=== PATIENT | female | born 1970 | race Caucasian/White ===

== ENCOUNTER 2016-11-22 22:57 | Emergency (ER) | payer OTHER ==
[~2016-11-22] VITALS: Ht 167.6 cm; Wt 108.0 kg
[2016-11-22 23:00] VITALS: BP 181/92
[2016-11-22] MEDS ORDERED: AZIT250T6 PO (23:39)
[2016-11-22] MEDS ORDERED: NAPR275T59 PO (23:39)
--- NOTE | 2016-11-22 23:39 | PHYS DOC ---
Past History Additional Past Medical Histor: chronic dental issues Past Medical History Lipoma upper neck and shoulder area on left Smoking: Cigarettes, Greater than 1 pack/day Alcohol Use: None Drug Use: None Adult General Chief Complaint Chief Complaint: EARACHE/EAR PAIN [facility] HPI This is a pleasant 46-year-old female history of dental issues presents with left ear pain that began earlier today with drainage. She describes anus achy and throbbing radiating from the base of the ear to the Localized swelling. At the base of the neck underneath the ear at his chronic for patient when she has ear infections. She denies any fever, hearing loss, she has had a recent URI with runny nose and nonproductive cough. She denies any trauma to the ear or tinnitus. This pain is a dull ache moderate in nature at this time Review of Systems Review of Systems Constitutional: Denies fever or chills [] Eyes: Denies change in visual acuity, redness, or eye pain [] HENT: She does have nasal congestion or ear pain without sore throat Respiratory: Some slight cough nonproductive in nature Cardiovascular: No additional information not addressed in HPI [] GI: Denies abdominal pain, nausea, vomiting, bloody stools or diarrhea [] : Denies dysuria or hematuria [] Musculoskeletal: Denies back pain or joint pain [] Integument: Denies rash or skin lesions [] Neurologic: Denies headache, focal weakness or sensory changes [] Endocrine: Denies polyuria or polydipsia [] Physical Exam Physical Exam Constitutional: Well developed, well nourished, no acute distress, non-toxic appearance. [] HENT: Normocephalic, atraumatic, bilateral external ears normal, dry mucous membranes with poor dentition considerable enamel erosion with only 4 teeth left in the lower jaw. It is no soft tissue swelling or erythema consistent with abscess in her mouth. Buccal mucosa is dry(left TM is bulging and red Eyes: PERRLA, EOMI, conjunctiva normal, no discharge. [] Neck: Normal range of motion, supple, no stridor. [] Recent does have significant anterior cervical lymphadenopathy mild tenderness to palpation. Cardiovascular:Heart rate regular rhythm, no murmur [] Lungs & Thorax: Bilateral breath sounds clear to auscultation [] Skin: Warm, dry, no erythema, no rash. [] Neurologic: Alert and oriented X 3, normal motor function, EKG EKG [] Radiology/Procedures Radiology/Procedures [] Course & Med Decision Making Course & Med Decision Making Pertinent Labs and Imaging studies reviewed. (See chart for details) the patient 's vital signs, nursing notes and history of physical patient with likely left otitis media with reactive lymphadenopathy. No evidence of herpes ophthalmicus or other facial cellulitis. she does have significant dental caries as well and referral her to a dentist. Impression: Left otitis media with reactive lymphadenopathy PCP follow-up 12-24 hours antibiotic course [] Dragon Disclaimer Dragon Disclaimer This chart was dictated in whole or in part using Voice Recognition software in a busy, high-work load, and often noisy Emergency Department environment. It may contain unintended and wholly unrecognized errors or omissions. Departure Departure: Impression: Primary Impression: Otitis media Disposition: 01 HOME, SELF-CARE Condition: IMPROVED Patient Instructions: Dental Caries, Otitis Media, Adult Additional Instructions: These follow-up with her primary care doctor for referral to a dentist. Dental issues seen ENT. In order to treat your Chronic ear infections. Scripts Azithromycin (AZITHROMYCIN TABLET) 250 Mg Tablet 250 MG PO DAILY for ANTI-BIOTIC for 5 Days, #5 TAB 0 Refills Please take 2 times the first day Please take one tablet day 2 through 5. Prov: ISRAEL LEON MD 11/22/16 Naproxen Sodium (NAPROXEN SODIUM) 275 Mg Tablet 275 MG PO BID for 7 Days, #14 TAB Prov: ISRAEL LEON MD 11/22/16 ISRAEL LEON MD Nov 22, 2016 23:39
[2016-11-22] MEDS ORDERED: levoFLOXacin 500 MG TABLET ONE (23:45)
[2016-11-23] MEDS ORDERED: NAPROXEN 500 MG TABLET PO ONE
[2016-11-23] MEDS ORDERED: AZITHROMYCIN 250 MG TABLET. PO ONE
== END 2016-11-22 23:55 | disposition home or self-care (01) ==
LOC: ER 22:57
DX: H66.92 Otitis media, unspecified, left ear (principal); R59.1 Generalized enlarged lymph nodes; F17.210 Nicotine dependence, cigarettes, uncomplicated
CPT/HCPCS: 99283; J0456

== ENCOUNTER 2016-11-24 21:20 | Emergency (ER) | payer OTHER ==
[~2016-11-24] VITALS: Ht 167.6 cm; Wt 108.0 kg
[~2016-11-24 21:20] MED LIST: AZIT250T6 PO; NAPR275T59 PO
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
[2016-11-24 23:28] VITALS: BP 164/85
--- NOTE | 2016-11-25 08:04 | RAD ---
Indication injury, follow-up. AP oblique and lateral views of the right knee were obtained. No bony abnormality is seen
== END 2016-11-24 23:28 | disposition home or self-care (01) ==
LOC: ER 21:20
DX: M25.561 Pain in right knee (principal); I11.0 Hypertensive heart disease with heart failure; I50.9 Heart failure, unspecified; E11.9 Type 2 diabetes mellitus without complications; M79.7 Fibromyalgia; F17.210 Nicotine dependence, cigarettes, uncomplicated; Z88.0 Allergy status to penicillin; Z88.1 Allergy status to other antibiotic agents; W18.09XA Striking against other object with subsequent fall, initial encounter; Y93.89 Activity, other specified; Y99.8 Other external cause status; Y92.89 Other specified places as the place of occurrence of the external cause
CPT/HCPCS: 73562; 99284

== ENCOUNTER 2017-01-06 20:13 | Emergency (ER) | payer OTHER ==
[~2017-01-06] VITALS: Ht 167.6 cm; Wt 108.0 kg
[2017-01-06 20:17] VITALS: BP 166/76
[2017-01-06] MEDS ORDERED: DOXY100T PO (22:06)
--- NOTE | 2017-01-06 22:06 | PHYS DOC ---
Past History Past Medical History: CHF, Diabetes, Fibromyalgia, Hypertension, MRSA Additional Past Medical Histor: chronic dental issues Past Surgical History: Cholecystectomy Smoking: Cigarettes, Greater than 1 pack/day Alcohol Use: None Drug Use: None Adult General Chief Complaint Chief Complaint: ABSCESS HPI HPI Patient is a 38-year-old female who presents to the ER today complaining of small pustule to her right breast. Patient reports that she had similar episode approximately one year ago that was not treated rapidly and developed into an abscess that she developed sepsis. Patient presents here today requesting management of this abscess before it gets worse. Patient has any fevers shakes chills nausea vomiting diarrhea chest pain shortness of breath cough cold or runny nose. Patient reports that she is allergic to Bactrim penicillin. Patient reports that she can take doxycycline. Patient reports that she has GI discomfort with clindamycin. Patient's physical exam is significant for a 1 x 1 cm erythematous area to her right breast with a small head in the center. There is no fluctuance or induration this time that would be amenable to aspiration or incision and drainage. Constitutional: Denies fever or chills [] Eyes: Denies change in visual acuity, redness, or eye pain [] HENT: Denies nasal congestion or sore throat [] All other review systems are negative except as documented in the history of present illness portion. Constitutional: Well developed, well nourished, no acute distress, non-toxic appearance. [] HENT: Normocephalic, atraumatic, bilateral external ears normal, oropharynx moist, no oral exudates, nose normal. [] Eyes: PERRLA, EOMI, conjunctiva normal, no discharge. [] Neck: Normal range of motion, no tenderness, supple, no stridor. [] Cardiovascular:Heart rate regular rhythm, Lungs & Thorax: Bilateral breath sounds clear to auscultation [] Abdomen: Bowel sounds normal, soft, no tenderness, no masses, no pulsatile masses. [] Skin: Warm, dry, no erythema, no rash. [] Back: No tenderness, no CVA tenderness. [] Extremities: No tenderness, no cyanosis, no clubbing, ROM intact, no edema. [] Neurologic: Alert and oriented X 3, normal motor function, normal sensory function, no focal deficits noted. [] Psychologic: Affect normal, judgement normal, mood normal. [] Assessment and plan this is a 46-year-old female who presents here today with a small microabscess/cellulitis to her right breast that will be started on doxycycline for. Patient has been instructed to get up and check in 2 days. Primary care physician and to return the ER sooner if she starts developing any fevers or if the infection starts to worsen. Current Medications Current Medications Current Medications Medications (Trade) Dose Ordered Sig/Leandro Start Time Stop Time Status Last Admin Dose Admin Doxycycline Hyclate (Vibra-Tab) 100 mg 1X ONCE 01/06/17 22:15 01/06/17 22:16 Allergies Allergies Allergies Coded Allergies Type Severity Reaction Last Updated Verified Penicillins Allergy Intermediate 11/22/16 Yes clindamycin Allergy Intermediate 11/22/16 Yes Sulfa (Sulfonamide Antibiotics) Allergy Unknown 11/24/16 Yes Current Patient Data Vital Signs Vital Signs Date Time Temp Pulse Resp B/P (MAP) Pulse Ox O2 Delivery O2 Flow Rate FiO2 01/06/17 20:17 99.0 100 20 98 Room Air EKG EKG [] Radiology/Procedures Radiology/Procedures [] Course & Med Decision Making Course & Med Decision Making Pertinent Labs and Imaging studies reviewed. (See chart for details) [] Dragon Disclaimer Dragon Disclaimer This chart was dictated in whole or in part using Voice Recognition software in a busy, high-work load, and often noisy Emergency Department environment. It may contain unintended and wholly unrecognized errors or omissions. Departure Departure: Impression: Primary Impression: Skin abscess Additional Impression: Cellulitis of breast Disposition: 01 HOME, SELF-CARE Condition: IMPROVED Referrals: YAJAIRA YOUNG MD (PCP) Patient Instructions: Cellulitis, [id number] Scripts Doxycycline Hyclate (DOXYCYCLINE HYCLATE) 100 Mg Tablet 1 TAB PO BID, #20 TAB Prov: LUCIAN SUAREZ MD 01/06/17 Problem Qualifiers LUCIAN SUAREZ MD Jan 06, 2017 22:06
[2017-01-06] MEDS ORDERED: DOXYCYCLINE HYCLATE 100 MG TABLET PO ONE (22:15)
== END 2017-01-06 22:13 | disposition home or self-care (01) ==
LOC: ER 20:13
DX: L02.91 Cutaneous abscess, unspecified (principal); N61.0 Mastitis without abscess; I11.0 Hypertensive heart disease with heart failure; I50.9 Heart failure, unspecified; E11.9 Type 2 diabetes mellitus without complications; M79.7 Fibromyalgia; F17.210 Nicotine dependence, cigarettes, uncomplicated; Z86.14 Personal history of Methicillin resistant Staphylococcus aureus infection; Z88.2 Allergy status to sulfonamides; Z88.0 Allergy status to penicillin; Z88.1 Allergy status to other antibiotic agents
CPT/HCPCS: 99283

== ENCOUNTER 2017-01-07 19:25 | Emergency (ER) | payer OTHER ==
[~2017-01-07 19:25] MED LIST changes: +DOXY100T PO
[2017-01-07 19:34] VITALS: BP 159/90
--- NOTE | 2017-01-07 19:48 | PHYS DOC ---
Past History Past Medical History: Arthritis, CHF, Diabetes, Fibromyalgia, Hypertension, MRSA Additional Past Medical Histor: chronic dental issues Past Surgical History: Cholecystectomy Additional Past Surgical Histo: abscess I&D Smoking: Cigarettes, Greater than 1 pack/day Alcohol Use: None Drug Use: None Adult General Chief Complaint Chief Complaint: ABSCESS HPI HPI Patient is a 46 year old female who presents for a recheck on her breast abscess. She was seen here yesterday at approximately 2200 p.m. She has had a long-standing history of MRSA infections. She is concerned because she felt this area had worsened since last night. She has been taking her antibiotics as directed. She uses Hibiclens on the area and places Bactroban ointment. No fever. No spontaneous drainage of fluid collection. Review of Systems Review of Systems Constitutional: Denies fever or chills Integument: Denies rash. Right breast with increase in redness Allergies Allergies Allergies Coded Allergies Type Severity Reaction Last Updated Verified Penicillins Allergy Intermediate 11/22/16 Yes clindamycin Allergy Intermediate 11/22/16 Yes Sulfa (Sulfonamide Antibiotics) Allergy Unknown 11/24/16 Yes Physical Exam Physical Exam Constitutional: Well developed, well nourished, no acute distress, non-toxic appearance. Skin: Warm, dry, no erythema, no rash. Right breast: quarter sized area medial aspect of erythema. Central area in center of induration BUT NO FLUCTUANT MASS. No lymphangitis. Back: No tenderness, no CVA tenderness. Current Patient Data Vital Signs Vital Signs Date Time Temp Pulse Resp B/P (MAP) Pulse Ox O2 Delivery O2 Flow Rate FiO2 01/07/17 19:34 98.4 97 18 95 Room Air Course & Med Decision Making Course & Med Decision Making Chart from yesterday. The area has not formed an abscess yet. There is this area of surrounding erythema that has increased in size but still signs of quarter. There is no lymphangitic spread. There is no fluctuance and I explained to her how I cannot do an incision and drainage and cellulitis. Patient is very concerned that this may worsen and indeed it may but at this point we are too early in the progression of the disease to determine if it will require I&D or hospitalization. AT THIS TIME SHE DOES NOT MEET HOSPITALIZATION CRITERIA. She is to continue on her Bactroban ointment, Hibiclens to the area, warm packs and the doxycycline. She unfortunately cannot take clindamycin due to severe GI upset and she cannot take Bactrim due to an allergy-or I would add one of these as a secondary med. There is anything else we can offer her today except to continue with her care plan to have her closely followed. She is to contact her personal physician tomorrow and have it rechecked. Dragon Disclaimer Dragon Disclaimer This chart was dictated in whole or in part using Voice Recognition software in a busy, high-work load, and often noisy Emergency Department environment. It may contain unintended and wholly unrecognized errors or omissions. Departure Departure: Impression: Primary Impression: Cellulitis of right breast Disposition: HOME, SELF-CARE Condition: GOOD Referrals: YAJAIRA YOUNG MD (PCP) Patient Instructions: Cellulitis Additional Instructions: SEE DR YOUNG TOMORROW. THERE IS NOT A FORMATION OF A ABSCESS YET TO DRAIN. WE CANNOT PREDICT IF YOU WILL DEVELOP ONE OR NOT. CONTINUE WITH THE BACTROBAN OINTMENT; HIBICLENS SCRUBS; WARM PACKS AND THE ANTIBIOTIC. ALCIDES PLASCENCIA MD Jan 07, 2017 19:48
== END 2017-01-07 20:05 | disposition home or self-care (01) ==
LOC: ER 19:25
DX: N61.0 Mastitis without abscess (principal); M19.90 Unspecified osteoarthritis, unspecified site; I11.0 Hypertensive heart disease with heart failure; I50.9 Heart failure, unspecified; E11.9 Type 2 diabetes mellitus without complications; M79.7 Fibromyalgia; F17.210 Nicotine dependence, cigarettes, uncomplicated; Z86.14 Personal history of Methicillin resistant Staphylococcus aureus infection; Z88.1 Allergy status to other antibiotic agents; Z88.2 Allergy status to sulfonamides; Z88.0 Allergy status to penicillin
CPT/HCPCS: 99281

== ENCOUNTER 2017-01-27 21:05 | Emergency (ER) | payer OTHER ==
[~2017-01-27] VITALS: Ht 167.6 cm; Wt 105.2 kg
[2017-01-27 21:10] VITALS: BP 156/88
[2017-01-27] MEDS ORDERED: DOXY100C14 PO (21:40)
[2017-01-27] MEDS ORDERED: NYST15CR2 TP (21:40)
--- NOTE | 2017-01-27 21:40 | PHYS DOC ---
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 She's been seen in our emergency department several times for local I&D. She's been seen by general surgeon as well for treatment of this wound. She noted in the same location that she normally has this wound yesterday increasing redness and swelling along the site. Patient denies any fevers, chills or other symptoms. She began using warm compresses and noted a slight rash underneath her left breast as well. It is described as beefy and red with satellite lesions. She denies any other systemic complaints of fevers or chills but wants to make sure she gets on antibiotics early and she will follow-up with her general surgeon on Sunday. She denies any recent travel outside the country denies any trauma. Review of Systems Review of Systems Constitutional: Denies fever or chills [] Eyes: Denies change in visual acuity, redness, or eye pain [] HENT: Denies nasal congestion or sore throat [] Respiratory: Denies cough or shortness of breath [] Cardiovascular: No additional information not addressed in HPI [] GI: Denies abdominal pain, nausea, vomiting, bloody stools or diarrhea [] : Denies dysuria or hematuria [] Musculoskeletal: Denies back pain or joint pain [] Integument: She has had local area of swelling and skin lesion on her right breast has been there for last month. Also describes a beefy red-like rash underneath the right breast after applying warm compresses. Neurologic: Denies headache, focal weakness or sensory changes [] Endocrine: Denies polyuria or polydipsia [] Allergies Allergies Allergies Coded Allergies Type Severity Reaction Last Updated Verified Penicillins Allergy Intermediate 11/22/16 Yes clindamycin Allergy Intermediate 11/22/16 Yes Sulfa (Sulfonamide Antibiotics) Allergy Unknown 11/24/16 Yes Physical Exam Physical Exam The vital signs recorded on the chart patient to be hypertensive otherwise normal looking vital signs. Constitutional: Well developed, well nourished, no acute distress, non-toxic appearance. [] Cardiovascular:Heart rate regular rhythm, patient has a 2/6 systolic ejection murmur. Lungs & Thorax: Bilateral breath sounds clear to auscultation [] Skin: Warm, dry, she has an area on her right breast the medial aspect near the sternum measuring 4 cm x 3 cm internal erythema. There is a small area local eschar that is well-healed there is a small area of induration and soft tissue swelling with no obvious signs of fluctuance. Underneath her right breast also has a beefy red rash with some satellite lesions there is no vesicles, no purpura no petechiae. [] Neurologic: Alert and oriented X 3, normal motor function, normal sensory function, no focal deficits noted. [] Psychologic: Affect normal, judgement normal, mood normal. [] EKG EKG [] Radiology/Procedures Radiology/Procedures [] Course & Med Decision Making Course & Med Decision Making Pertinent Labs and Imaging studies reviewed. (See chart for details) she presents with what I believe is an early cellulitis of an old injury site. She also has evidence of candidiasis likely secondary to moisture and warmth underneath her right breast. She will appropriate treatment for both. [] Dragon Disclaimer Dragon Disclaimer This chart was dictated in whole or in part using Voice Recognition software in a busy, high-work load, and often noisy Emergency Department environment. It may contain unintended and wholly unrecognized errors or omissions. Departure Departure: Impression: Primary Impression: Cellulitis of right breast Additional Impression: Candidiasis of breast Disposition: HOME, SELF-CARE Condition: IMPROVED Referrals: YAJAIRA YOUNG MD (PCP) Patient Instructions: Cellulitis, Cutaneous Candidiasis Additional Instructions: Please follow-up with your primary care doctor on Sunday for repeat wound check. Please take the medications as prescribed. Please return for any fever greater 102.2 despite treatment please keep his rash underneath her breast dry Scripts Nystatin/Triamcin (NYSTATIN-TRIAMCINOLONE CREAM) 15 Gm Cream..g. 1 REZA TP BID, #60 GM 1 Refill Prov: ISRAEL LEON MD 01/27/17 Doxycycline Monohydrate (DOXYCYCLINE MONOHYDRATE) 100 Mg Capsule 1 CAP PO BID, #20 CAP Prov: ISRAEL LEON MD 01/27/17 Problem Qualifiers ISRAEL LEON MD Jan 27, 2017 21:40
[2017-01-27] MEDS ORDERED: DOXYCYCLINE HYCLATE 100 MG TABLET PO ONE (21:45)
== END 2017-01-27 21:50 | disposition home or self-care (01) ==
LOC: ER 21:05
DX: N61.0 Mastitis without abscess (principal); B37.89 Other sites of candidiasis; E11.9 Type 2 diabetes mellitus without complications; I11.0 Hypertensive heart disease with heart failure; I50.9 Heart failure, unspecified; M79.7 Fibromyalgia; Z86.73 Personal history of transient ischemic attack (TIA), and cerebral infarction without residual deficits; M19.90 Unspecified osteoarthritis, unspecified site; F17.210 Nicotine dependence, cigarettes, uncomplicated; Z88.0 Allergy status to penicillin; Z88.1 Allergy status to other antibiotic agents; Z88.2 Allergy status to sulfonamides
CPT/HCPCS: 99283